=== PATIENT | male | born 1950 | race Caucasian/White ===

== ENCOUNTER → 2025-06-16 | Outpatient (CLI) | payer OTHER ==
--- NOTE | 2025-06-16 18:17 | HMCIMG ---
EXAM: CT Chest Without IV contrast. CLINICAL HISTORY: acute cough, shortness of breath, also known as dyspnea TECHNIQUE: Axial computed tomography images of the chest without intravenous contrast. COMPARISON: None provided. FINDINGS: LUNGS: No pulmonary mass. The lungs appear essentially clear. There is a 3 mm probable intrapulmonary lymph node along the minor fissure of the right middle lobe. There is mild linear left lung base atelectasis versus scarring. PLEURAL SPACES: No pneumothorax evident. No pleural effusions. HEART: No cardiomegaly. No significant pericardial effusion. There is aneurysmal dilatation of the ascending thoracic aorta measuring 5.1 cm in maximum diameter. The descending thoracic aorta measures 3.1 cm maximum dimension. There is mild calcific atherosclerosis of the thoracic aortic and descending thoracic aorta LYMPH NODES: No lymphadenopathy is evident. UPPER ABDOMEN: The upper abdominal solid organs are unremarkable. There is a small sliding hiatal hernia. Colonic diverticulosis without CT evidence of acute diverticulitis transverse colon and visible portions of the ascending and descending colon BONES: No acute osseous abnormality. IMPRESSION: 1. Ascending thoracic aortic aneurysm measuring 5.1 cm. 2. Mild linear left lung base atelectasis versus scarring. 3. Small sliding hiatal hernia. 4. Colonic diverticulosis. /[place]
== END | disposition home or self-care (01) ==
LOC: RAH 10:48
PROVIDERS: ATTEND Family Medicine
DX: J20.9 Acute bronchitis, unspecified (principal); I71.21 Aneurysm of the ascending aorta, without rupture; I70.0 Atherosclerosis of aorta; K44.9 Diaphragmatic hernia without obstruction or gangrene; K57.30 Diverticulosis of large intestine without perforation or abscess without bleeding; R06.02 Shortness of breath; R05.1 Acute cough
CPT/HCPCS: 71250